=== PATIENT | female | born 2000 | race Caucasian/White ===

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

== ENCOUNTER 2021-04-11 18:26 | Emergency (ER) | payer BC ==
[2021-04-11 18:45] VITALS: BP 110/75; PULSE 100
[2021-04-11] MEDS ORDERED: Sodium Chloride 0.9% 1,000 ML IV STA (19:15)
[2021-04-11] MEDS ORDERED: Ondansetron 4 MG/2 ML SDV IVPUSH ONE (19:16)
--- NOTE | 2021-04-11 19:27 | EDM.PDOC ---
ED HPI GENERAL MEDICAL PROBLEM - General Chief Complaint: Gastrointestinal Problem Stated Complaint: COVID+ NAUSEA Time Seen by Provider: 04/11/21 18:43 Source of Information: Reports: Patient, RN Notes Reviewed History Limitations: Reports: No Limitations - History of Present Illness INITIAL COMMENTS - FREE TEXT/NARRATIVE: Patient is a 21-year-old female presenting to the emergency department with complaints of Covid symptoms. Developed symptoms of cough, body aches, fever, chills, nausea, vomiting, diarrhea of 6 on Wednesday last week. Reports T-max of 102 at home. She is able to keep down some foods and some liquids but vomits up most of what she eats. She has also had some intermittent diarrhea. Denies any chronic medical conditions. She has been using Tylenol for fever with last dose being early today. Temperature in triage was 99.7. - Related Data Allergies Allergy/AdvReac Type Severity Reaction Status Date / Time No Known Allergies Allergy Verified 04/11/21 18:45 Home Meds: Home Meds Codeine/Promethazine [Phenergan with Codeine] 5 ml PO Q6HR PRN #50 ml 04/11/21 [Rx] Ondansetron [Zofran ODT] 4 mg PO Q6H PRN #10 tab.dis 04/11/21 [Rx] dexAMETHasone [Decadron] 6 mg PO DAILY 4 Days #4 tablet 04/11/21 [Rx] Past Medical History - Past Health History Medical/Surgical History: Denies Medical/Surgical History Cardiovascular History: Reports: Stents Endocrine/Metabolic History: Reports: Obesity/BMI 30+ - Infectious Disease History Infectious Disease History: Reports: Novel Coronavirus - Past Surgical History Cardiovascular Surgical History: Reports: Other (See Below) Other Cardiovascular Surgeries/Procedures: Aortic Valve surgery Social & Family History - Family History Family Medical History: No Pertinent Family History - Tobacco Use Tobacco Use Status *Q: Never Tobacco User Second Hand Smoke Exposure: No - Caffeine Use Caffeine Use: Reports: Energy Drinks - Recreational Drug Use Recreational Drug Use: No ED ROS GENERAL - Review of Systems Review Of Systems: Comprehensive ROS is negative, except as noted in HPI. ED EXAM, GI/ABD - Physical Exam Exam: See Below Exam Limited By: No Limitations General Appearance: Alert, WD/WN, No Apparent Distress Respiratory/Chest: No Respiratory Distress, Lungs Clear, Normal Breath Sounds, N o Accessory Muscle Use, Chest Non-Tender Cardiovascular: Normal Peripheral Pulses, Regular Rate, Rhythm, No Edema, No Gallop, No JVD, No Murmur, No Rub GI/Abdominal Exam: Normal Bowel Sounds, Soft, Non-Tender, No Organomegaly, No Distention, No Abnormal Bruit, No Mass, Pelvis Stable Neurological: Alert, Oriented, CN II-XII Intact, Normal Cognition, Normal Gait, Normal Reflexes, No Motor/Sensory Deficits Psychiatric: Normal Affect, Normal Mood Skin Exam: Warm, Dry, Intact, Normal Color, No Rash Course - Vital Signs Last Recorded V/S: Last Vital Signs Temp 99.7 F 04/11/21 18:43 Pulse 100 04/11/21 18:43 Resp 16 04/11/21 18:43 BP 110/75 04/11/21 18:43 Pulse Ox 93 L 04/11/21 18:43 - Orders/Labs/Meds Orders: Active Orders 24 hr Category Date Time Status Orthostatic Vital Signs [RC] ASDIRECTED Care 04/11/21 18:46 Active Chest 1V Frontal [CR] Stat Exams 04/11/21 19:14 Ordered Sodium Chloride 0.9% [Normal Saline] 1,000 ml Med 04/11/21 19:15 Active IV NOW Medication Orders Sodium Chloride (Normal Saline) 1,000 mls @ 999 mls/hr IV NOW STA Stop: 04/11/21 20:15 Last Admin: 04/11/21 19:36 Dose: 999 mls/hr Documented by: DYLAN Meds: Medications Generic Name Dose Route Start Last Admin Trade Name Freq PRN Reason Stop Dose Admin Sodium Chloride 1,000 mls @ 999 mls/hr 04/11/21 19:15 04/11/21 19:36 Normal Saline IV 04/11/21 20:15 999 mls/hr NOW STA Administration Discontinued Medications Generic Name Dose Route Start Last Admin Trade Name Freq PRN Reason Stop Dose Admin Ondansetron HCl 4 mg 04/11/21 19:16 04/11/21 19:36 Ondansetron 4 Mg/2 Ml Sdv IVPUSH 04/11/21 19:17 4 mg ONETIME ONE Administration - Re-Assessments/Exams Free Text/Narrative Re-Assessment/Exam: Patient is a 21-year-old female presenting to the emergency department with complaints of cough, fever, chills, vomiting, and diarrhea with a known diagnosis of COVID-19. She is not currently taking any prescription medications for treatment of this. On exam, lung sounds are clear to auscultation with the exception of cough elicited by deep breathing. Oxygen saturation is 93 to 95% on room air. She has low-grade temp at 99.7. Not taken Tylenol since this morning. I will complete orthostatic vital signs. If she is orthostatic, I will give her a liter of IV fluids. Also order chest x-ray. Plan to give her Zofran as well. 04/11/21 19:27 Patient is mildly orthostatic. Blood pressure went from 106/79 lying to 87/62 standing. Pulse 97 lying 117 standing. Give her liter of normal saline as well as Zofran IV. Chest x-ray is pending. 04/11/21 19:47 Chest x-ray shows mild bilateral Covid pneumonia. I will send prescriptions for Zofran, Phenergan with codeine, and dexamethasone. Once IV fluids are completed we will discharge her home. We will send her with a pulse oximeter to monitor her oxygen saturations. Discussed return precautions. Discharge instructions as documented. 04/11/21 19:49 Unfortunately we are out of pulse oximeter's. I would recommend patient purchase one for use. Departure - Departure Time of Disposition: 19:47 Disposition: Home, Self-Care 01 Condition: Good Clinical Impression: COVID-19 - Discharge Information *PRESCRIPTION DRUG MONITORING PROGRAM REVIEWED*: No *COPY OF PRESCRIPTION DRUG MONITORING REPORT IN PATIENT GABRIEL: No Prescriptions: dexAMETHasone [Decadron] 6 mg PO DAILY 4 Days #4 tablet Codeine/Promethazine [Phenergan with Codeine] 5 ml PO Q6HR PRN #50 ml PRN Reason: Cough Ondansetron [Zofran ODT] 4 mg PO Q6H PRN #10 tab.dis PRN Reason: Nausea/Vomiting Instructions: COVID-19 Referrals: Shruthi Wilcox MD [Primary Care Provider] - Forms: ED Department Discharge Additional Instructions: Clear liquid diet until nausea improves. Take Tylenol and ibuprofen routinely for fever and discomfort Use Zofran as prescribed for nausea. Purchase [id number] Imodium and use per label instructions as needed for diarrhea. Take dexamethasone as prescribed. Use Phenergan with codeine cough syrup only as prescribed as needed for cough. Do not work or drive for 12 hours after taking this as it can be sedating. Purchase a home pulse oximeter for use. These are available at most pharmacies and [facility]. Intermittently monitor your oxygen saturations using the pulse oximeter. If you are maintaining a saturation of 88 or lower and not coming up after resting for 15 minutes, or you experience any other new or worsening symptoms of concern, please return to the emergency department for reevaluation. Sepsis Event Note (ED) - Evaluation Sepsis Screening Result: No Definite Risk - Focused Exam Vital Signs: Vital Signs Temp Pulse Resp BP Pulse Ox 04/11/21 18:43 99.7 F 100 16 110/75 93 L - My Orders Last 24 Hours: My Active Orders 04/11/21 18:46 Orthostatic Vital Signs [RC] ASDIRECTED 04/11/21 19:14 Chest 1V Frontal [CR] Stat 04/11/21 19:15 Sodium Chloride 0.9% [Normal Saline] 1,000 ml IV NOW - Assessment/Plan Last 24 Hours: My Active Orders 04/11/21 18:46 Orthostatic Vital Signs [RC] ASDIRECTED 04/11/21 19:14 Chest 1V Frontal [CR] Stat 04/11/21 19:15 Sodium Chloride 0.9% [Normal Saline] 1,000 ml IV NOW
[2021-04-11] MEDS ORDERED: Dexamethasone 4 MG Tab PO ONE (19:53)
--- NOTE | 2021-04-12 07:20 | CR ---
Chest: Frontal view of the chest was obtained. Comparison: Prior chest x-ray of 09/26/20. Heart size and mediastinum are within normal limits. Patchy increased density is seen within the right midlung. Lungs otherwise are clear. Bony structures are unremarkable. Impression: 1. Mild increased density within the right mid lung compatible with pneumonia. Findings could also relate to COVID disease. Diagnostic code #3
== END 2021-04-11 21:00 | disposition home or self-care (01) ==
LOC: JD.ED 18:26
DX: U07.1 COVID-19 (principal); E66.9 Obesity, unspecified; Z68.35 Body mass index [BMI] 35.0-35.9, adult
CPT/HCPCS: 71045; 96374; 99284; J2405; J7030; J8540

== ENCOUNTER 2021-04-25 18:29 | Emergency (ER) | payer BC ==
[2021-04-25] MEDS ORDERED: Ketorolac 60 MG/2 ML SDV IM ONE (19:27)
[2021-04-25] MEDS ORDERED: Orphenadrine 100 MG Tab.ER PO ONE (19:27)
--- NOTE | 2021-04-25 19:40 | EDM.PDOC ---
ED HPI GENERAL MEDICAL PROBLEM - General Chief Complaint: Back Pain or Injury Stated Complaint: BACK PAIN Time Seen by Provider: 04/25/21 18:39 Source of Information: Reports: Patient, RN Notes Reviewed History Limitations: Reports: No Limitations - History of Present Illness INITIAL COMMENTS - FREE TEXT/NARRATIVE: Patient is a 21-year-old female who presents to the ER for her left upper back pain. Patient did have COVID-19, and has had a lingering cough. She states for the last 2 days however anytime she coughs, sneezes, or makes much of a movement at all. Her left back hurts very much. States he was not able to get much sleep at all last night due to the pain. Has been using some Tylenol medication for this but notes it does not seem to be helping much. Patient does not complain of any pain radiating into her arms, or up further into her neck. No other sick-like symptoms fevers or chills, worsening shortness of breath or cough, or any sort of nausea/vomiting/diarrhea or any urinary issues. 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 Respiratory History: Reports: Other (See Below) Other Respiratory History: COVID Endocrine/Metabolic History: Reports: Obesity/BMI 30+ - Infectious Disease History Infectious Disease History: Reports: Novel Coronavirus - Past Surgical History Cardiovascular Surgical History: Reports: Other (See Below) Other Cardiovascular Surgeries/Procedures: Aortic Valve surgery Social & Family History - Family History Family Medical History: No Pertinent Family History - Tobacco Use Tobacco Use Status *Q: Never Tobacco User Second Hand Smoke Exposure: No - Caffeine Use Caffeine Use: Reports: None - Recreational Drug Use Recreational Drug Use: No ED ROS GENERAL - Review of Systems Review Of Systems: Comprehensive ROS is negative, except as noted in HPI. ED EXAM, UPPER BACK/NECK PAIN - Physical Exam Exam: See Below Exam Limited By: No Limitations General Appearance: Alert, WD/WN, No Apparent Distress Throat/Mouth Exam: Normal Inspection, Normal Lips, Normal Teeth, Normal Gums, Normal Oropharynx, Normal Voice, No Airway Compromise Head Exam: Atraumatic, Normocephalic Neck Exam: Non-Tender, Full Range of Motion, Normal Inspection Nexus Criteria: No: Posterior, Midline Cervical Tenderness, Evidence of Intoxication, Altered Level of Consciousness, Focal Neurological Deficit, Painful Distraction Injuries Cardiovascular/Respiratory: Regular Rate, Rhythm, No M/R/G, Normal Peripheral Pulses, Normal Breath Sounds, No Respiratory Distress GI/Abdominal: Normal Bowel Sounds, Soft, Non-Tender, No Distention, No Mass Back Exam: Muscle Spasm (along entire left paraspinal muscles in left rib cage) Extremities: Normal Inspection, Normal Capillary Refill 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: 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 II-XII nml As Tested Psychiatric: Normal Affect, Normal Mood Skin Exam: Normal Color, Warm/Dry Course - Vital Signs Last Recorded V/S: Last Vital Signs Temp 99.9 F 04/25/21 18:30 Pulse 110 H 04/25/21 18:30 Resp 16 04/25/21 18:30 BP 95/79 04/25/21 18:30 Pulse Ox 96 04/25/21 18:30 - Orders/Labs/Meds Meds: Medications Discontinued Medications Generic Name Dose Route Start Last Admin Trade Name Soloq PRN Reason Stop Dose Admin Ketorolac Tromethamine 60 mg 04/25/21 19:27 04/25/21 19:39 Ketorolac 60 Mg/2 Ml Sdv IM 04/25/21 19:28 60 mg ONETIME ONE Administration Orphenadrine Citrate 100 mg 04/25/21 19:27 04/25/21 19:39 Orphenadrine 100 Mg Tab.Er PO 04/25/21 19:28 100 mg ONETIME ONE Administration - Re-Assessments/Exams Free Text/Narrative Re-Assessment/Exam: 04/25/21 19:40 Patient presents to the ER for her upper back pain. We will go ahead and give her some Toradol and Norflex to see if this helps and then reassess her pain management after that. 04/25/21 20:33 Patient states that her pain went from about a 9 out of 10 to roughly an 8 out of 10. We will try low-dose oral hydrocodone to see if this helps relieve some of her pain. Departure - Departure Time of Disposition: 20:55 Disposition: Home, Self-Care 01 Condition: Good Clinical Impression: Upper back pain on left side - Discharge Information *PRESCRIPTION DRUG MONITORING PROGRAM REVIEWED*: Yes *COPY OF PRESCRIPTION DRUG MONITORING REPORT IN PATIENT GABRIEL: No Instructions: Pain Medicine Instructions, [id number] Referrals: Shruthi Wilcox MD [Primary Care Provider] - Forms: ED Department Discharge Additional Instructions: You were evaluated in the ER today for your left upper back pain. You were given a few different medications, and this seemed to help relieve most of your back pain. You were given a prescription for a strong pain medication, hydrocodone/acetaminophen 5/325 mg, please take 1 tab every 6 hours as needed for pain not relieved by Tylenol or ibuprofen alone. Please note this medication does contain Tylenol in it, so do not take more than 4000 mg in a 24- hour time span. These medications can be addictive, so please take as few as possible to achieve adequate pain control. These meds can also be quite constipating, recommend that you increase your oral fluid intake and take a stool softener like MiraLAX while taking these medications. Do not drive while taking this medication. This medication was electronically sent to the [place] [facility] located in the [employer] store. You were also given a prescription for a muscle relaxer, Norflex dosing will be 1 tablet 2 times a day as needed for muscle spasms. Please caution use of this when taking the hydrocodone medication as it can cause increased sedation. I would recommend that you still continue to take 600 mg ibuprofen every 6 hours for further pain management as well. If pain is not much improved in a few days time, would recommend that you get seen by another medical provider, or chiropractor to see if this helps relieve some of your upper back pain. Sepsis Event Note (ED) - Evaluation Sepsis Screening Result: No Definite Risk - Focused Exam Vital Signs: Vital Signs Temp Pulse Resp BP Pulse Ox 04/25/21 18:30 99.9 F 110 H 16 95/79 96
[2021-04-25] MEDS ORDERED: Acetaminophen/HYDROcodone 325-5 MG Tab PO ONE (20:33)
[2021-04-25 21:27] VITALS: BP 93/67; PULSE 78
== END 2021-04-25 21:25 | disposition home or self-care (01) ==
LOC: JD.ED 18:29
DX: M54.6 Pain in thoracic spine (principal); E66.9 Obesity, unspecified; Z68.34 Body mass index [BMI] 34.0-34.9, adult
CPT/HCPCS: 96372; 99283; A9270; J1885